=== PATIENT | male | born 1995 | race African-American/Black ===

== ENCOUNTER 2016-04-02 01:49 | Emergency (ER) | payer MEDICAID ==
[~2016-04-02] VITALS: Ht 177.8 cm; Wt 68.0 kg
[2016-04-02] MEDS ORDERED: NKM (01:57)
[2016-04-02 02:15] VITALS: BP 138/83
[2016-04-02] MEDS ORDERED: Bactrim DS (160mg/800mg) tab ORAL ONE (02:30)
[2016-04-02] MEDS ORDERED: Norco 5mg/325mg tab ORAL ONE (02:30)
[2016-04-02] MEDS ORDERED: HYDROCODON-ACE1 EA15 ORAL (02:33)
[2016-04-02] MEDS ORDERED: BACTRIM DS TAB1 EAC1 ORAL (02:33)
--- NOTE | 2016-04-02 02:34 | Emergency Room Report ---
History of Present Illness General Chief Complaint: Skin Rash/Abscess Source: Patient Present Illness HPI This is a 20-year-old male with no past medical history. He presents with a chief complaint of a bump to his buttock area for the last for 5 days. No drainage. Worse with sitting. Pain is 7/10. No fever or chills. Allergies: Coded Allergies: No Known Allergies (Unverified , 04/02/16) Patient History Past Medical History: none, see triage record, old chart reviewed Past Surgical History: none Pertinent Family History: none Social History: Denies: smoking Immunizations: UTD Reviewed Nursing Documentation: PMH: Agreed, PSxH: Agreed Nursing Documentation-PMH Past Medical History: No Stated History Review of Systems Eye: Denies: blurred vision, eye pain ENT: Denies: ear pain, nose congestion, throat swelling Respiratory: Denies: cough, shortness of breath Cardiovascular: Denies: chest pain, palpitations Gastrointestinal: Denies: abdominal pain, diarrhea, nausea, vomiting Musculoskeletal: Denies: back pain, joint pain Skin: Denies: rash Neurological: Denies: headache, numbness Endocrine: Denies: increased thirst, increased urine Hematologic/Lymphatic: Denies: easy bruising All Other Systems: negative except mentioned in HPI Physical Exam Vital Signs Date Time Temp Pulse Resp B/P Pulse Ox O2 Delivery O2 Flow Rate FiO2 04/02/16 01:53 98.1 85 17 138/83 100 Room Air vitals normal Sp02 EP Interpretation: reviewed, normal General Appearance: well appearing, no apparent distress, alert Head: normocephalic, atraumatic Eyes: bilateral eye EOMI, bilateral eye PERRL ENT: hearing grossly normal, normal pharynx Neck: full range of motion, supple, no meningismus Respiratory: chest non-tender, lungs clear, normal breath sounds Cardiovascular #1: regular rate, rhythm, no murmur Gastrointestinal: normal bowel sounds, non tender, no mass, no organomegaly, no bruit, non-distended Rectal: other - Buttock: Left buttock at the crease at the midline, there is a 5 cm indurated area. No redness. Tender to palpation. Does not cross the midline. Musculoskeletal: back normal, gait/station normal, normal range of motion Neurologic: alert, oriented x3 Psychiatric: mood/affect normal Skin: warm/dry Procedures Incision and Drainage Incision and Drainage : Consent: Verbal Site: Buttock Blade Size: 11 I & D Procedure: betadine prep, sterile drapes applied, sterile dressing applied, gauze wick placed Anesthesia: 1% Lidocaine Volume Anesthetic (ccs): 6 Patient Tolerated: Well Complications: None Progress Buttock clean with Betadine. Local anesthetic 1% lidocaine without epinephrine. I made a 2 cm incision. There was copious amount of pus. Loculated area broken up. Wound irrigated. Packing placed. Dressing placed. Patient tolerated procedure without a problem. Medical Decision Making Diagnostic Impression: Primary Impression: Abscess of buttock, left ER Course Patient an abscess to the buttock. Most likely MRSA. Has been I&D. We'll put on antibiotics. We'll discharge home. No systemic spread. Last Vital Signs Date Time Temp Pulse Resp B/P Pulse Ox O2 Delivery O2 Flow Rate FiO2 04/02/16 01:53 98.1 85 17 138/83 100 Room Air Status: improved Disposition: HOME, SELF-CARE Condition: Stable Scripts Hydrocodone/Acetaminophen 5-325* (HYDROCODONE/ACETAMINOPHEN 5-325*) 1 Each Tablet 1 TAB ORAL Q6H Y for For Pain, #20 TAB 0 Refills Prov: ZENAIDA TAYLOR M.D. 04/02/16 Trimethoprim/Sulfamethoxazole 160/800* (BACTRIM DS TABLET*) 1 Each Tablet 1 TAB ORAL Q12H, #14 TAB 0 Refills Prov: ZENAIDA TAYLOR M.D. 04/02/16 Referrals: NOT CHOSEN IPA/,REFERRING (PCP) Patient Instructions: Abscess Additional Instructions: Followup in 2 days, either with your doctor or return here, for recheck and packing removal. Return if symptom worsen. ZENAIDA TAYLOR M.D. Apr 02, 2016 02:34
[2016-04-02 02:45] VITALS: BP 138/83
== END 2016-04-02 02:52 | disposition home or self-care (01) ==
LOC: EMR 02:15
DX: L02.31 Cutaneous abscess of buttock (principal)
CPT/HCPCS: 10060

== ENCOUNTER 2016-04-03 15:32 | Emergency (ER) | payer MEDICAID ==
[~2016-04-03] VITALS: Ht 177.8 cm; Wt 68.0 kg
[~2016-04-03 15:32] MED LIST: BACTRIM DS TAB1 EAC1 ORAL; HYDROCODON-ACE1 EA15 ORAL; NKM
[2016-04-03 16:01] VITALS: BP 142/88
--- NOTE | 2016-04-03 16:13 | Emergency Room Report ---
History of Present Illness General Chief Complaint: Skin Rash/Abscess Source: Patient Present Illness HPI 20 YO male presents to the ED c/o 10/24 localized left buttock pain, swelling, and erythema of recently incised abscess of the left buttock. pt. was seen here yesterday for I & D. Pt. states he feels the erythema and tenderness is about the same in size as compared to yesterday. Pt. states he has not taken the prescribed abx "he did not feel like it." Denies nausea, vomiting, fevers or chills. Denies CP, Palpitations, LOC, AMS, dizziness, Changes in Vision, Sensation, paresthesias, or a sudden severe headache. Allergies: Coded Allergies: No Known Allergies (Unverified , 04/02/16) Patient History Past Medical History: see triage record Past Surgical History: none Pertinent Family History: none Immunizations: UTD Reviewed Nursing Documentation: PMH: Agreed, PSxH: Agreed Nursing Documentation-PMH Past Medical History: No Stated History Review of Systems All Other Systems: negative except mentioned in HPI Physical Exam Vital Signs Date Time Temp Pulse Resp B/P Pulse Ox O2 Delivery O2 Flow Rate FiO2 04/03/16 15:52 98.1 91 14 142/88 99 Room Air Sp02 EP Interpretation: reviewed, normal General Appearance: no apparent distress, alert, GCS 15, non-toxic Head: normocephalic, atraumatic Eyes: bilateral eye PERRL, bilateral eye normal inspection ENT: hearing grossly normal, normal pharynx, no angioedema, normal voice Neck: full range of motion, supple/symm/no masses Respiratory: chest non-tender, lungs clear, normal breath sounds, speaking full sentences Cardiovascular #1: regular rate, rhythm, no edema Musculoskeletal: back normal, gait/station normal, normal range of motion, non- tender, no calf tenderness Neurologic: alert, oriented x3, responsive, motor strength/tone normal, sensory intact, speech normal Psychiatric: judgement/insight normal, memory normal, mood/affect normal, no suicidal/homicidal ideation Skin: normal color, no rash, warm/dry, well hydrated, other - 1cm incision noted with 1cm surrounding erythema of the medial left buttock, there is wound packing in place with purulent drainage noted. Lymphatic: no adenopathy Medical Decision Making PA Attestation Dr. Pendleton is my supervising Physician whom patient management has been discussed with. Diagnostic Impression: Primary Impression: Abscess Additional Impression: Encounter for abscess packing removal ER Course Pt. presents to the ED c/o pain, swelling, and erythema of recently incised abscess of the left buttock. - pt. recently seen for I & D. !* Pt. states he has not taken the prescribed abx " he did not feel like it." Ddx considered but are not limited to cellulitis, abscess, sepsis, routine healing of wound, non-compliance. Vital signs: are WNL, pt. is afebrile H&PE are most consistent with : recently incised abscess of the left buttock, mild infection noted with continued drainage. consistent with recently incised abscess. Pt. is non compliant with PO abx. ORDERS: none required at this time, the diagnosis is clinical ED INTERVENTIONS: -wound examined -Packing was removed, pt. tolerated well there were no complications. -Sterile dressing applied. d/w pt. to take the poabx that he was prescribed, and to look for signs of infection . DISCHARGE: At this time pt. is stable for d/c to home. Will provide printed patient care instructions, and any necessary prescriptions. Care plan and follow up instructions have been discussed with the patient prior to discharge. Last Vital Signs Date Time Temp Pulse Resp B/P Pulse Ox O2 Delivery O2 Flow Rate FiO2 04/03/16 15:52 98.1 91 14 142/88 99 Room Air Disposition: HOME, SELF-CARE Condition: Stable Patient Instructions: Wound Packing, Abscess Additional Instructions: Take PRESCRIBED ANTIBIOTIC medications as directed. ! Follow up with PCP in 3-5 days Return sooner to ED if new symptoms occur, or current symptoms become worse. Sylwia Castro Apr 03, 2016 16:13
[2016-04-03 16:39] VITALS: BP 142/88
== END 2016-04-03 16:39 | disposition home or self-care (01) ==
LOC: EMR 16:27
DX: Z48.00 Encounter for change or removal of nonsurgical wound dressing (principal); L02.31 Cutaneous abscess of buttock
CPT/HCPCS: 99282